=== PATIENT | male | born 1975 ===

== ENCOUNTER 2024-06-30 08:51 | Day surgery (SDC) | payer OTHER ==
[2024-06-26 08:56] VITALS: BMI 28.3
[~2024-06-30 08:51] MED LIST: LIDOCAINE 1% (10MG/ML) FOR IV START INTRADERMA PRN; ONDANSETRON 4 MG/2 ML VIAL IVP PRN
[2024-06-30] MEDS: IV FLUID CONTINUATION 1,000 ML IV ONE (09:12)
[2024-06-30 09:17] VITALS: TEMP 96.7
[2024-06-30 09:23] LABS: Glucose,Whole Blood 199 mg/dL (70-110)
[2024-06-30] MEDS: LACTATED RINGERS 1,000 ML IV SCH (09:23)
[2024-06-30] MEDS ORDERED: PROPOFOL 10 MG/ML 20 ML VIAL IV ONE (09:41)
[2024-06-30] MEDS ORDERED: LIDOCAINE 1% INJ 10MG/ML (20 ML MDV) ONE (09:41)
--- NOTE | 2024-06-30 09:45 | P.GSHP ---
History of Present Illness H&P Date: 06/30/24 Chief Complaint: Colon cancer screening 49-year-old male here for colonoscopy. He has not had 1 previously. No bowel complaints. No family history of colon cancer. Past Medical History Additional Past Medical History / Comment(s): states A1C elevated - changing diet. History of Any Multi-Drug Resistant Organisms: None Reported Past Surgical History: No Surgical Hx Reported Past Anesthesia/Blood Transfusion Reactions: Unable to Obtain Smoking Status: Former smoker Medications and Allergies Home Medications Medication Instructions Recorded Confirmed Type No Known Home Medications 06/26/24 06/30/24 History Allergies Allergy/AdvReac Type Severity Reaction Status Date / Time No Known Allergies Allergy Verified 06/30/24 09:14 Surgical - Exam Vital Signs Temp Pulse Resp BP Pulse Ox 96.7 F L 61 16 145/84 99 06/30/24 09:15 06/30/24 09:15 06/30/24 09:15 06/30/24 09:15 06/30/24 09:15 Physical exam: General: Well-developed, well-nourished HEENT: Normocephalic, sclerae nonicteric Abdomen: Nontender, nondistended Extremities: No edema Neuro: Alert and oriented Results - Labs Abnormal Lab Results - Last 24 Hours (Table) 06/30/24 Range/Units 09:19 POC Glucose (mg/dL) 199 H (70-110) mg/dL Assessment and Plan (1) Colon cancer screening Narrative/Plan: Will proceed with colonoscopy at this time. Current Visit: Yes Status: Acute Code(s): Z12.11 - ENCOUNTER FOR SCREENING FOR MALIGNANT NEOPLASM OF COLON SNOMED Code(s): 636654569
--- NOTE | 2024-06-30 09:57 | P.PCN ---
Date of Procedure: 06/30/24 Procedure(s) Performed: PREOPERATIVE DIAGNOSIS: Colon cancer screening POSTOPERATIVE DIAGNOSIS: Normal exam PROCEDURE: Colonoscopy ANESTHESIA: MAC SURGEON: Godfrey Crane M.D. SPECIMENS: None ENDOSCOPIC PROCEDURE: The patient was placed on the endoscopy table in the left decubitus position. The Olympus colonoscope was inserted into the anus and passed under direct visualization to the base of the cecum. The appendiceal orifice was visualized. From that point the scope was slowly withdrawn inspecti ng all surfaces carefully. There were no neoplastic inflammatory or polypoid lesions throughout the cecum, ascending, transverse, descending, sigmoid and rectum. There was no visible diverticulosis noted. Digital rectal examination was normal. The patient was taken to the recovery room in stable condition per anesthesia guidelines. RECOMMENDATIONS: Resume diet. Repeat colonoscopy 10 years.
[2024-06-30 10:35] VITALS: BP 124/81; PULSE 45; RESP 18
== END 2024-06-30 10:45 | disposition home or self-care (01) ==
LOC: ORWHC2ENDO 08:51
PROVIDERS: ATTEND Surgery
DX: Z12.11 Encounter for screening for malignant neoplasm of colon (principal); Z87.891 Personal history of nicotine dependence
CPT/HCPCS: 45378; J2003; J2704